=== PATIENT | male | born 1985 | race African-American/Black ===

== ENCOUNTER → 2017-11-09 | Outpatient (CLI) | payer BC | END | disposition home or self-care (01) | LOC: MRI 07:40 | DX: M51.36 Other intervertebral disc degeneration, lumbar region (principal); M51.27 Other intervertebral disc displacement, lumbosacral region | CPT/HCPCS: 72148 ==

== ENCOUNTER 2018-07-10 05:24 | Inpatient (IN) | payer BC ==
[~2018-07-10] VITALS: Ht 172.7 cm; Wt 74.8 kg
[2018-07-10] MEDS ORDERED: LACTATED RINGERS 1,000 ML IV SCH (06:15)
[2018-07-10] MEDS ORDERED: TRAM50TA3 PO (06:37)
[2018-07-10] MEDS ORDERED: THROMBIN (BOVINE) 5000 UNITS/VIAL TOP ONE (06:41)
[2018-07-10] MEDS ORDERED: NORMAL SALINE 0.9% 10 ML SYR ONE (06:41)
[2018-07-10] MEDS ORDERED: LIDOCAINE HCL/EPINEPHRINE 1%-EPI 1:100,000 20 ML VIAL ONE (06:42)
[2018-07-10] MEDS ORDERED: BACITRACIN 50,000 UNITS/VIAL ONE (06:42)
[2018-07-10] MEDS ORDERED: GELATIN SPONGE,COMPRESSED SZ 100 ONE (06:42)
[2018-07-10] MEDS ORDERED: FENTANYL CITRATE/PF 50MCG/ML 2ML VIAL ONE (07:15)
[2018-07-10] MEDS ORDERED: NEOSTIGMINE METHYLSULFATE 1MG/ML 10 ML VIAL ONE (07:15)
[2018-07-10] MEDS ORDERED: ROCURONIUM BROMIDE 10MG/ML VIAL 5ML IV ONE (07:15)
[2018-07-10] MEDS ORDERED: PROPOFOL 200MG/20ML VIAL IV ONE (07:16)
[2018-07-10] MEDS ORDERED: SUCCINYLCHOLINE CHLORIDE 200MG/10ML IV ONE (07:16)
[2018-07-10] MEDS ORDERED: GLYCOPYRROLATE 0.2 MG/ML 2ML VIAL ONE ×3 (07:16→09:41)
[2018-07-10] MEDS ORDERED: LIDOCAINE HCL/PF 1% 10 MG/ML 5ML VIAL ONE (07:16)
[2018-07-10] MEDS ORDERED: MIDAZOLAM HCL 2 MG/2 ML VIAL ONE ×2 (07:16→07:50)
[2018-07-10] MEDS ORDERED: DEXAMETHASONE 4MG/ML 1ML VIAL ONE (07:16)
[2018-07-10] MEDS ORDERED: ONDANSETRON HCL 4MG/2ML INJ ONE (07:16)
[2018-07-10] MEDS ORDERED: LABETALOL HCL 5MG/ML VIAL 20ML IV PRN (07:25)
[2018-07-10] MEDS ORDERED: MEPERIDINE HCL/PF 25MG/ML CPJ IV PRN (07:30)
[2018-07-10] MEDS ORDERED: ONDANSETRON HCL 4MG/2ML INJ IV PRN ×2 (07:30→08:00)
[2018-07-10] MEDS ORDERED: IPRATROPIUM/ALBUTEROL 0.5-3(2.5)MG/3ML NEB INH PRN (08:00)
[2018-07-10] MEDS ORDERED: ACETAMINOPHEN 325MG TABLET PO PRN (08:00)
[2018-07-10] MEDS ORDERED: HYDROMORPHONE HCL/PF 2MG/ML (OR) ONE (08:18)
[2018-07-10] MEDS ORDERED: LABETALOL HCL 5MG/ML VIAL 20ML IV ONE (08:28)
[2018-07-10 09:04] LABS: CLARITY URINE CLEAR (CLEAR); COLOR URINE YELLOW (YELLOW); KETONES URINE TRACE (NEGATIVE); LEUKOCYTE ESTERASE URINE TRACE (NEGATIVE); NITRITE URINE NEGATIVE (NEGATIVE); OCCULT BLOOD URINE 2+ (NEGATIVE); PROTEIN URINE NEGATIVE (NEGATIVE); SPECIFIC GRAVITY URINE 1.023 (1.005-1.030); UROBILINOGEN URINE 0.2 E.U./dL (0.2-1.0)
[2018-07-10] MEDS: HYDROMORPHONE HCL/PF 2MG/ML CPJ IV PRN ×3 (10:13→10:37)
[2018-07-10] MEDS ORDERED: ONDANSETRON INJ IV PRN (10:15)
[2018-07-10] MEDS ORDERED: NALOXONE INJ IV PRN (10:15)
[2018-07-10] MEDS ORDERED: HYDROMORPHONE PCA 10MG/50ML IV PRN (10:15)
[2018-07-10 11:55] VITALS: BP 104/52
[2018-07-10 12:25] VITALS: BP 104/52
[2018-07-10] MEDS ORDERED: CEFAZOLIN SODIUM 1000MG/VIAL IV SCH (14:00)
[2018-07-10] MEDS ORDERED: SODIUM CHLORIDE 0.45% 1,000 ML IV ONE (14:00)
[2018-07-10] MEDS: CEFAZOLIN 1000MG PREMIX 50 ML IV SCH ×2 (14:29→22:25)
[2018-07-10] MEDS: DEXT 5%/LACTATED RINGERS 1,000 ML IV SCH ×2 (14:35→22:25)
[2018-07-10] MEDS ORDERED: DOCUSATE SODIUM 250MG CAPSULE PO PRN (14:45)
[2018-07-10] MEDS ORDERED: BISACODYL 5MG TABLET PO PRN (14:45)
[2018-07-10] MEDS: LORAZEPAM 0.5MG TABLET PO PRN ×2 (14:50→22:25)
[2018-07-10 16:00] VITALS: BP 106/63
[2018-07-10 20:00] VITALS: BP 123/57
[2018-07-10 22:13] LABS: BASOPHILS % 0.3 % (0.0-2.0); EOSINOPHILS % 0.6 % (0.0-5.0); HEMOGLOBIN. 13.1 g/dL (14.0-18.0); LYMPHOCYTES % 18.3 % (20.0-50.0); MEAN CORPUSCULAR HEMOGLOBIN 26.8 pg (28.0-32.0); MONOCYTES % 6.8 % (2.0-8.0); PLATELET 145 x1000/uL (130-400); RED BLOOD CELL COUNT 4.88 mill/uL (4.7-6.1); RED CELL DISTRIBUTION WIDTH 14.1 % (11.6-14.6)
[2018-07-10 22:23] LABS: CHLORIDE 105 mEq/L (98-107)
[2018-07-11] VITALS (10 sets, daily range): BP systolic 56–115; BP diastolic 38–55
[2018-07-11] MEDS: CEFAZOLIN 1000MG PREMIX 50 ML IV SCH ×3 (06:23→23:27)
[2018-07-11] MEDS: HYDROCODONE/ACETAMINOPHEN 10/325MG TABLET PO PRN (10:34)
[2018-07-11] MEDS: DEXT 5%/LACTATED RINGERS 1,000 ML IV SCH ×3 (10:35→20:19)
[2018-07-11] MEDS: LORAZEPAM 0.5MG TABLET PO PRN ×2 (12:37→23:27)
[2018-07-12] VITALS: BP 116/62
[2018-07-12 04:00] VITALS: BP 101/46
[2018-07-12] MEDS: CEFAZOLIN 1000MG PREMIX 50 ML IV SCH ×2 (06:32→13:42)
[2018-07-12] MEDS: DEXT 5%/LACTATED RINGERS 1,000 ML IV SCH (06:42)
[2018-07-12 08:00] VITALS: BP 111/56
[2018-07-12] MEDS: HYDROCODONE/ACETAMINOPHEN 10/325MG TABLET PO PRN (10:17)
[2018-07-12 12:00] VITALS: BP 104/85
[2018-07-12] MEDS: LORAZEPAM 0.5MG TABLET PO PRN (13:42)
[2018-07-12 15:55] VITALS: BP 104/85
[2018-07-12 16:00] VITALS: BP 121/65
== END 2018-07-12 16:36 | disposition home or self-care (01) | DRG 520 ==
LOC: OR 05:24 → 6EST 05:25 → EDSTATUS 07-11 07:00
PROVIDERS: ADMIT Neurological Surgery; ATTEND Internal Medicine Critical Care Medicine
PROC: 0SB40ZZ Excision of Lumbosacral Disc, Open Approach (ICD-10-PCS; principal; 2018-07-10 07:00)
DX: M51.17 Intervertebral disc disorders with radiculopathy, lumbosacral region (principal); M47.27 Other spondylosis with radiculopathy, lumbosacral region; F41.9 Anxiety disorder, unspecified; E89.2 Postprocedural hypoparathyroidism; Z60.2 Problems related to living alone; Z87.442 Personal history of urinary calculi
CPT/HCPCS: 36415; 72100; 80048; 82652; 86850; 86900; 88304; 88311; 95863; 95925; 95926; 97116; 97162; 97166; 97530; 97760; A4216; J0330; J0690; J1100; J1170; J2250; J2405; J2704; J2710; J3010; J3490; J7030; J7120; J7121

== ENCOUNTER 2019-04-15 12:03 | Emergency (ER) | payer SELFPAY ==
[~2019-04-15] VITALS: Ht 175.3 cm; Wt 74.0 kg
[~2019-04-15 12:03] MED LIST: TRAM50TA3 PO
[2019-04-15] MEDS ORDERED: KETOROLAC 60MG/2ML VIAL IM ONE (12:45)
[2019-04-15 14:06] VITALS: BP 110/70
== END 2019-04-15 14:06 | disposition home or self-care (01) ==
LOC: ER 12:03
DX: S63.616A Unspecified sprain of right little finger, initial encounter (principal); Z79.899 Other long term (current) drug therapy; W21.05XA Struck by basketball, initial encounter; Y93.67 Activity, basketball; Y92.89 Other specified places as the place of occurrence of the external cause; Y99.8 Other external cause status
CPT/HCPCS: 29130; 73140; 96372; 99283; J1885

== ENCOUNTER 2019-05-09 12:01 | Emergency (ER) | payer SELFPAY ==
[~2019-05-09] VITALS: Ht 175.3 cm; Wt 75.0 kg
[2019-05-09] MEDS ORDERED: SODIUM CHLORIDE 0.9% 1,000 ML IV SCH (14:42)
[2019-05-09] MEDS ORDERED: METHYLPREDNISOLONE SOD SUCC 125 MG/2 ML VIAL IV ONE (14:45)
[2019-05-09] MEDS ORDERED: DIPHENHYDRAMINE 50MG/ML VIAL IV ONE (14:45)
[2019-05-09] MEDS ORDERED: FAMOTIDINE 20MG/2ML VIAL IV ONE (14:45)
[2019-05-09 15:11] VITALS: BP 121/70
== END 2019-05-09 16:47 | disposition home or self-care (01) ==
LOC: ER 12:01
DX: L50.9 Urticaria, unspecified (principal)
CPT/HCPCS: 96374; 96375; 99283; J1200; J2930; J3490

== ENCOUNTER 2019-05-10 17:48 | Emergency (ER) | payer SELFPAY ==
[~2019-05-10] VITALS: Ht 398.8 cm; Wt 70.0 kg
[2019-05-10] MEDS ORDERED: PREDNISONE 20MG TABLET PO ONE (18:45)
[2019-05-10] MEDS ORDERED: FAMOTIDINE 20MG TABLET PO ONE (18:45)
[2019-05-10] MEDS ORDERED: DIPHENHYDRAMINE 50MG CAPSULE PO ONE (18:45)
[2019-05-10 20:10] VITALS: BP 118/65
== END 2019-05-10 20:46 | disposition home or self-care (01) ==
LOC: ER 17:48
DX: L29.9 Pruritus, unspecified (principal); R13.10 Dysphagia, unspecified; R06.02 Shortness of breath; S90.822A Blister (nonthermal), left foot, initial encounter; S90.821A Blister (nonthermal), right foot, initial encounter; M79.89 Other specified soft tissue disorders; T36.8X5A Adverse effect of other systemic antibiotics, initial encounter; Y92.89 Other specified places as the place of occurrence of the external cause
CPT/HCPCS: 99284; J7512; Q0163